=== PATIENT | male | born 1995 | race Caucasian/White ===

== ENCOUNTER 2018-08-11 15:30 | Emergency (ER) | payer BC ==
[2018-08-11 15:34] VITALS: BP 151/96
[2018-08-11] MEDS ORDERED: OMEG-26 PO (15:37)
[2018-08-11] MEDS ORDERED: CHOL10005 PO (15:37)
[2018-08-11] MEDS ORDERED: TURM500C4 PO (15:37)
--- NOTE | 2018-08-11 15:39 | ER Report ---
History and Physical Time Seen By MD: 15:38 Hx. of Stated Complaint: C/O DENNEY onset last night with assocd. photophobia and nausea. States his last migraine like this was 4 years ago. Advil Migraine at 0900. HPI/ROS CHIEF COMPLAINT: Headache HISTORY OF PRESENT ILLNESS: Patient is a 23 year old male presenting to the clinic for complaints of a migraine that is not going away. Patient states the headache starts at the base of his head, goes up over his ears and behind his eyes. Started last night and was worse this am when he woke up. Patient tried Advil Migraine and some more sleep. Patient states this usually works for him but this time it did not. Patient has tried heat, ice, and massage. Patient pain is a 8-9/10. Patient's last migraine was about 4 years ago. This migraine feels the same as the previous one but is just not going away. Migraine is not the worse he has had in his life. Patient is having some nausea with it. No vomiting. Patient has drank water and a Gatorade today. REVIEW OF SYSTEMS: Respiratory: No cough, no dyspnea. Cardiovascular: No chest pain, no palpitations. Gastrointestinal: Patient has been nausea, he has not had any vomiting Musculoskeletal: No back pain. Allergies: Coded Allergies: No Known Drug Allergies (Unverified , 08/11/18) Home Meds Reported Medications Turmeric/Turmeric Root Extract (Turmeric 500 mg Capsule) 450 Mg-50 Mg Capsule, 1 CAPSULE PO DAILY 08/11/18 [place]-3/Dha/Epa/Fish Oil (FISH OIL 1,000 MG SOFTGEL) 1 Each Capsule, 1 EACH PO D AILY, CAPSULE 08/11/18 Cholecalciferol (Vitamin D3) (VITAMIN D3) 1,000 Unit Tablet, 1000 UNIT PO DAILY, TAB 08/11/18 Past Medical/Surgical History Patient has a past medical history of knee injuries. Patient denies any surgical history. Reviewed Nurses Notes: Yes Constitutional Vital Sign - Last 24 Hours 08/11/18 15:34 Temp 98.8 Pulse 70 Resp 16 B/P (MAP) 151/96 Pulse Ox 95 O2 Delivery Room Air Physical Exam General Appearance: The patient is alert, has no immediate need for airway pr otection and no current signs of toxicity. Eyes: Pupils equal and round no injection. Extraocular movements intact. Respiratory: Chest is non tender, lungs are clear to auscultation. Cardiac: regular rate and rhythm Gastrointestinal: Abdomen is soft and non tender, no masses, bowel sounds normal. Musculoskeletal: Neck: Neck is supple and non tender. Extremities have full range of motion and are non tender. Skin: No rashes or lesions. Neuro: Patient is alert and oriented 4, cranial nerves II through XII grossly intact. DIFFERENTIAL DIAGNOSIS: After history and physical exam differential diagnosis was considered for headache including but not limited to subarachnoid hemorrhage, migraine headache, tension headache and infectious causes such as meningitis, pharyngitis and sinusitis. Medical Decision Making ED Course/Re-evaluation ED Course Patient was admitted and examined, history and physical were obtained. Differential diagnoses were considered. On examination lungs are clear, heart is regular, abdomen is soft and nontender. Neurologically patient is alert and oriented 4, cranial nerves II-12 grossly intact. With this being very consistent with his migraines a CT scan of the head was not done. Patient had an IV started, received a liter of normal saline, 50 mg of Toradol, 25 mg of Benadryl, 30 mg of Norflex, and 12.5 mg of Phenergan. On reevaluation patient states his headache is now down to a 3 out of 10. He is felt significantly better and is ready to go home. We'll go ahead and discharge patient home at this time. He is to monitor for triggers of his headache. He is return to the emergency room if condition worsens. He is to follow-up with his primary care provider in the next week. Patient verbalized understanding and agreement with plan. Decision to Disposition Date: Aug 11, 2018 Decision to Disposition Time: 17:01 Depart Departure Latest Vital Signs Vital Signs Date Time Temp Pulse Resp B/P (MAP) Pulse Ox O2 Delivery O2 Flow Rate FiO2 08/11/18 15:34 98.8 70 16 151/96 95 Room Air Impression: Primary Impression: Migraine Condition: Improved Disposition: HOME OR SELF-CARE Patient Instructions: Migraine Headache (ED) Additional Instructions: Return to ED if migraine returns and you are unable to relieve migraine with OTC medications. Take in fluids. Work on limiting stressors. Follow up with your primary care provider within the next week. Problem Qualifiers Primary Impression: Migraine Migraine type: without aura Status migrainosus presence: without status migrainosus Intractability: not intractable Qualified Codes: G43.009 - Migraine without aura, not intractable, without status migrainosus ANDREA MA Aug 11, 2018 15:39
[2018-08-11] MEDS ORDERED: PROMETHAZINE 25 MG/ML 1 ML AMP IVP ONE (16:05)
[2018-08-11] MEDS ORDERED: NS(*) 0.9% 1000 ML BAG 1,000 ML IV ONE (16:05)
[2018-08-11] MEDS ORDERED: ORPHENADRINE 60MG/2ML INJ IVP ONE (16:05)
[2018-08-11] MEDS ORDERED: KETOROLAC 15 MG/ML VIAL IVP ONE (16:05)
[2018-08-11] MEDS ORDERED: diphenhydrAMINE 50 MG/ML VIAL IVP ONE (16:05)
== END 2018-08-11 17:13 | disposition home or self-care (01) ==
LOC: ER 15:44
DX: G43.009 Migraine without aura, not intractable, without status migrainosus (principal)
CPT/HCPCS: 96361; 96374; 96375; 99284; J1200; J1885; J2360; J2550; J7030